=== PATIENT | female | born 1995 | race American Indian/Alaskan Native ===

== ENCOUNTER 2017-02-14 09:38 | Emergency (ER) | payer BC ==
[2017-02-14 09:46] VITALS: BP 128/83; PULSE 81; RESP 16; TEMP 98.7; O2SAT 100
[2017-02-14] MEDS ORDERED: Naproxen 550 mg Tab PO STA (10:01)
--- NOTE | 2017-02-14 10:03 | C.PDOC ---
History Of Present Illness 21 yr old female presents to the ER with complaints of sore throat, chills, nonproductive cough, nasal congestion and eye soreness for the past 2 days. Patient denies fever, chest pain, SOB, nausea, vomiting, abdominal pain, diarrhea, dysuria, headache, weakness or numbness. Time Seen by Provider: 02/14/17 09:39 Chief Complaint (Nursing): ENT Problem History Per: Patient History/Exam Limitations: no limitations Onset/Duration Of Symptoms: Days (2) Current Symptoms Are (Timing): Still Present Past Medical History Reviewed: Historical Data, Nursing Documentation, Vital Signs Vital Signs: Last Vital Signs Temp 98.7 F 02/14/17 09:45 Pulse 81 02/14/17 09:45 Resp 16 02/14/17 09:45 BP 128/83 02/14/17 09:45 Pulse Ox 100 02/14/17 10:04 - Medical History PMH: Seizures (seizures at age 4 no med per md went away) Family History: States: No Known Family Hx - Social History Hx Tobacco Use: Yes Hx Alcohol Use: Yes Hx Substance Use: No - Immunization History Hx Tetanus Toxoid Vaccination: No Hx Influenza Vaccination: No Hx Pneumococcal Vaccination: No Review Of Systems Except As Marked, All Systems Reviewed And Found Negative. Constitutional: Positive for: Chills. Negative for: Fever Eyes: Positive for: Other ((+) Eye soreness.) ENT: Positive for: Nose Congestion, Throat Pain (Sore throat) Cardiovascular: Negative for: Chest Pain Respiratory: Positive for: Cough (Nonproductive). Negative for: Shortness of Breath Gastrointestinal: Negative for: Nausea, Vomiting, Abdominal Pain, Diarrhea Genitourinary: Negative for: Dysuria Neurological: Negative for: Weakness, Numbness, Headache Physical Exam - Physical Exam Appears: Non-toxic, In Acute Distress (Mild uncomfortable), Other ((+) Speaking in full sentences.) Skin: Warm, Dry, No Rash Head: Atraumatic, Normacephalic Eye(s): bilateral: Normal Inspection, PERRL, EOMI Ear(s): Bilateral: Normal Nose: Discharge (Rhinorrhea) Oral Mucosa: Moist Tongue: Normal Appearing, No Swelling Lips: Normal Appearing, No Swelling Throat: Normal, No Erythema, No Exudate, No Drooling Neck: Normal, Normal ROM, Supple Chest: Symmetrical, No Tenderness Cardiovascular: Rhythm Regular, No Murmur Respiratory: Normal Breath Sounds, No Rales, No Rhonchi, No Stridor, No Wheezing Gastrointestinal/Abdominal: Normal Exam, Soft, No Tenderness, No Guarding, No Rebound Extremity: Normal ROM, No Swelling Neurological/Psych: Oriented x3, Normal Speech, Normal Motor ED Course And Treatment O2 Sat by Pulse Oximetry: 100 (RA) Pulse Ox Interpretation: Normal Progress Note: PLAN: Naproxen PO & Sudafed PO. Patient is given Rx for home. Disposition Counseled Patient/Family Regarding: Diagnosis, Need For Followup, Rx Given - Disposition Referrals: [facility] [Outside] Disposition: HOME/ ROUTINE Disposition Time: 10:15 Condition: STABLE Additional Instructions: FOLLOW UP WITH YOUR DOCTOR/CLINIC IN 1-2 DAYS DRINK PLENTY OF FLUIDS AND GET REST RETURN TO EMERGENCY ROOM IF SYMPTOMS WORSEN Prescriptions: Benzonatate [Tessalon Perles] 100 mg PO BID PRN #15 sgl PRN Reason: Cough Naproxen [Naprosyn Tab] 375 mg PO BID PRN #20 tab PRN Reason: pain Phenol/Glycerin [Chloraseptic Max [place]] 1 spray MM Q6 PRN #1 spray PRN Reason: THROAT PAIN Pseudoephedrine [Sudafed] 60 mg PO Q6 PRN #12 tab PRN Reason: Nasal Congestion Instructions: Upper Respiratory Infection (ED), Viral Syndrome (ED) Forms: [facility] [employer] (Mozambican), Work Excuse Print Language: TUNISIAN - POA Present On Arrival: None - Clinical Impression Clinical Impression: Viral upper respiratory infection - Scribe Statement The provider has reviewed the documentation as recorded by the Rosanneibrosita Avila Provider Attestation: All medical record entries made by the Rosanneibrosita were at my direction and personally dictated by me. I have reviewed the chart and agree that the record accurately reflects my personal performance of the history, physical exam, medical decision making, and the department course for this patient. I have also personally directed, reviewed, and agree with the discharge instructions and disposition.
[2017-02-14] MEDS ORDERED: Naproxen 550 mg Tab PO ONE (10:05)
== END 2017-02-14 10:14 | disposition home or self-care (01) ==
LOC: C.ER 09:38
DX: J06.9 Acute upper respiratory infection, unspecified (principal)

== ENCOUNTER 2017-06-19 12:14 | Emergency (ER) | payer BC ==
[2017-06-19 12:26] VITALS: BP 108/75; PULSE 88; RESP 18; TEMP 101.2; O2SAT 97
--- NOTE | 2017-06-19 12:42 | C.PDOC ---
Time Seen by Provider: 06/19/17 12:31 Chief Complaint (Nursing): Flu-like Symptoms History Per: Patient Onset/Duration Of Symptoms: Days (4) Current Symptoms Are (Timing): Still Present Associated Symptoms: Fever, Sore Throat, Cough, Myalgias, Nasal Congestion, Vomiting, Diarrhea Severity: Moderate Recent travel outside of the [place]: No Additional History Per: Prior Records Past Medical History Reviewed: Historical Data, Nursing Documentation, Vital Signs Vital Signs: Last Vital Signs Temp 101.2 F H 06/19/17 12:27 Pulse 88 06/19/17 12:24 Resp 18 06/19/17 12:24 BP 108/75 06/19/17 12:24 Pulse Ox 97 06/19/17 12:24 - Medical History PMH: No Chronic Diseases, Seizures (seizures at age 4 no med per md went away) Surgical History: No Surg Hx Family History: States: Unknown Family Hx - Social History Hx Tobacco Use: No Hx Alcohol Use: Yes Hx Substance Use: No - Immunization History Hx Tetanus Toxoid Vaccination: No Hx Influenza Vaccination: No Hx Pneumococcal Vaccination: No Review Of Systems Except As Marked, All Systems Reviewed And Found Negative. Constitutional: Positive for: Fever, Malaise ENT: Positive for: Nose Congestion, Throat Pain. Negative for: Ear Pain Cardiovascular: Negative for: Chest Pain Respiratory: Positive for: Cough. Negative for: Shortness of Breath, Hemoptysis Gastrointestinal: Negative for: Abdominal Pain Genitourinary: Negative for: Dysuria Musculoskeletal: Negative for: Neck Pain, Back Pain Skin: Negative for: Rash Neurological: Negative for: Weakness, Numbness, Seizures, Altered Mental Status Physical Exam - Physical Exam Appears: Non-toxic, No Acute Distress Skin: Normal Color, Warm, Dry, No Rash Head: Atraumatic, Normacephalic Eye(s): bilateral: Normal Inspection, PERRL, EOMI Oral Mucosa: Moist, No Drooling, No Trismus Throat: Erythema, No Exudate, No Drooling, No Mass Neck: Normal ROM, Supple Cardiovascular: Rhythm Regular Respiratory: Normal Breath Sounds, No Accessory Muscle Use Gastrointestinal/Abdominal: Soft, No Tenderness Back: No CVA Tenderness Extremity: Normal ROM Neurological/Psych: Oriented x3, Normal Speech, Normal Motor, Normal Sensation ED Course And Treatment O2 Sat by Pulse Oximetry: 97 Pulse Ox Interpretation: Normal Disposition Counseled Patient/Family Regarding: Diagnosis, Need For Followup, Rx Given - Disposition Disposition: HOME/ ROUTINE Disposition Time: 12:43 Condition: STABLE Additional Instructions: Drink plenty of fluids. Follow up with your doctor. Return to the ER if you develop shortness of breath, not tolerating fluids, worsening of symptoms or if you have any other concerns. Prescriptions: Guaifenesin/Dextromethorphan [Mucinex Dm ER 1,200-60 mg Tab] 1 tab PO BID PRN # 14 tab.er.12h PRN Reason: Cough And Congestion Naproxen [Naprosyn] 1 tab PO BID PRN #20 tab PRN Reason: Pain Instructions: Cold Symptoms (ED) Forms: [facility] (New Zealander) - Clinical Impression Clinical Impression: Influenza-like illness
== END 2017-06-19 12:51 | disposition home or self-care (01) ==
LOC: C.ER 12:14
DX: J11.1 Influenza due to unidentified influenza virus with other respiratory manifestations (principal)

== ENCOUNTER 2018-05-01 16:59 | Inpatient (IN) | payer BC ==
[2018-05-01] MEDS ORDERED: Sodium Chloride 0.9% 1,000 ML IV ONE (17:35)
--- NOTE | 2018-05-01 17:42 | C.PDOC ---
History Of Present Illness 22 y/o female presents to ED with c/o left lower back pain radiating anteriorly associated with nausea and urinary urgency for 2 days; symptoms worsened this morning. Patient denies similar prior episodes, fever/chills, diarrhea, dy suria/hematuria, vaginal discharge or any other complaints at this time. Time Seen by Provider: 05/01/18 17:20 Chief Complaint (Nursing): Abdominal Pain History Per: Patient History/Exam Limitations: no limitations Onset/Duration Of Symptoms: Days Current Symptoms Are (Timing): Still Present Severity: Moderate Quality Of Discomfort: "Pain" Associated Symptoms: Urinary Symptoms Past Medical History Reviewed: Historical Data, Nursing Documentation, Vital Signs Vital Signs: Last Vital Signs Temp 97.7 F 05/01/18 17:05 Pulse Resp BP Pulse Ox - Medical History PMH: Seizures (seizures at age 4 no med per md went away) Surgical History: No Surg Hx Family History: States: No Known Family Hx - Social History Hx Tobacco Use: No Hx Alcohol Use: Yes Hx Substance Use: No - Immunization History Hx Tetanus Toxoid Vaccination: No Hx Influenza Vaccination: No Hx Pneumococcal Vaccination: No Review Of Systems Constitutional: Negative for: Fever, Chills Cardiovascular: Negative for: Chest Pain, Palpitations Respiratory: Negative for: Shortness of Breath Gastrointestinal: Positive for: Nausea. Negative for: Vomiting, Abdominal Pain, Diarrhea Genitourinary: Positive for: Other (urinary urgency). Negative for: Dysuria, Hematuria, Vaginal Discharge Musculoskeletal: Positive for: Back Pain Skin: Negative for: Rash Physical Exam - Physical Exam Appears: Well, Non-toxic, Other (uncomfortable apearing, tearful ) Skin: Warm, Dry, No Rash Eye(s): bilateral: Normal Inspection Oral Mucosa: Moist Neck: Supple Cardiovascular: Rhythm Regular Respiratory: Normal Breath Sounds, No Rales, No Rhonchi, No Wheezing Gastrointestinal/Abdominal: Bowel Sounds, Soft, Tenderness (mild LLQ TTP), No Guarding, No Rebound Back: No CVA Tenderness Extremity: Normal ROM, No Pedal Edema Neurological/Psych: Oriented x3 ED Course And Treatment - Laboratory Results Result Diagrams: 05/01/18 17:39 05/01/18 17:39 O2 Sat by Pulse Oximetry: 100 (RA) Pulse Ox Interpretation: Normal - CT Scan/US ct abd/pelvis Other Rad Studies (CT/US): Read By Radiologist, Radiology Report Reviewed CT/US Interpretation: Accession No. : [id number]. Patient Name / ID : VALERIA NEWTON / [id number]. Exam Date : 05/01/2018 18:23:40 ( Approved ). Study Comment : Sex / Age : F / 22Y. Creator : Niranjan Alicea MD. Dictator : Niranjan Alicea MD. Monogram Maker : [employer] Consultant : Ramón Alicea MD. Approver2 : Report Date : 05/01/2018 18:58:29. My Comment : . This report is currently processing and HAS NOT BEEN OFFICIALLY SIGNED BY THE PHYSICIAN - ESTIMATED TIME OF APPROVAL IS 05/01/2018 19:03. Date of service: 05/01/2018. PROCEDURE: CT Abdomen and Pelvis without intravenous contrast. HISTORY: LLQ PAIN, HEMATURIA R/O KDINEY STONE. COMPARISON: None. TECHNIQUE: Axial and reformatted coronal and sagittal CT images of the abdomen and pelvis were obtained without IV or oral contrast administration.. Contrast dose: 0. Radiation dose: Total exam DLP = 1128.48 mGy-cm. This CT exam was performed using one or more of the following dose reduction techniques: Automated exposure control, adjustment of the mA and/or kV according to patient size, and/or use of iterative reconstruction technique. FINDINGS: LOWER THORAX: Unremarkable. LIVER: Unremarkable. No gross lesion or ductal dilatation. GALLBLADDER AND BILE DUCTS: Unremarkable. PANCREAS: Unremarkable. No gross lesion or ductal dilatation. SPLEEN: Unremarkable. ADRENALS: Unremarkable. No mass. KIDNEYS AND URETERS: There is mild enlargement of the left kidney. There is mild left hydronephrosis and hydroureter up to 7 x 5 millimeter calculus at or adjacent to the left UV junction in the terminal left ureter. No evidence of right hydronephrosis or renal calculi. VASCULATURE: Unremarkable. No aortic aneurysm . No aortic atherosclerotic calcification or mural plaque present. BOWEL: No obstruction. No gross mural thickening. APPENDIX: No evidence of appendicitis. PERITONEUM: Unremarkable. No free fluid. No free air. LYMPH NODES: Unremarkable. No enlarged lymph nodes. BLADDER: Unremarkable. REPRODUCTIVE: Unremarkable. BONES: No acute fracture. OTHER FINDINGS: None. IMPRESSION: Mild left hydronephrosis and hydroureter up to 7 x 5 millimeter calculus at or adjacent to the left UV junction. Progress Note: Blood work, UA, Upreg and CT abd/pelvis ordered and reviewed. Patient given IV NS bolus, IV toradol. Disposition - Disposition Forms: [employer] (Czech) - Scribe Statement The provider has reviewed the documentation as recorded by the Rosanneibrosita Garcia All medical record entries made by the Jacoby were at my direction and personally dictated by me. I have reviewed the chart and agree that the record accurately reflects my personal performance of the history, physical exam, medical decision making, and the department course for this patient. I have also personally directed, reviewed, and agree with the discharge instructions and disposition.
[2018-05-01] MEDS ORDERED: Sodium Chloride 0.9% 1,000 ML ONE (17:43)
[2018-05-01 17:46] LABS: BASO # 0.1 K/uL (0.0-0.2); BASO % 0.5 % (0.0-2.0); EOS % 0.4 % (0.0-4.0); HEMOGLOBIN 11.5 g/dL (11.0-16.0); LYMPH # 3.1 K/uL (1.0-4.3); LYMPH % 25.1 % (20.0-40.0); MEAN CORPUSCULAR HEMOGLOBIN 26.1 pg (27.0-31.0); MONO # 0.9 K/uL (0.0-0.8); MONO % 7.6 % (0.0-10.0); NEUT # 8.1 K/uL (1.8-7.0); NEUT % 66.4 % (50.0-75.0); RBC 4.4 Mil/uL (3.80-5.20); RED CELL DISTRIBUTION WIDTH 14.8 % (11.5-14.5); WHITE BLOOD COUNT 12.3 K/uL (4.8-10.8)
[2018-05-01 17:48] LABS: MEAN CELL VOLUME 79.2 fL (81.0-99.0)
[2018-05-01 17:52] LABS: SQUAMOUS EPITHIAL 2 /hpf (0-5); URINE BILIRUBIN NEGATIVE (NEGATIVE); URINE BLOOD 3+ (NEGATIVE); URINE COLOR Yellow (YELLOW); URINE GLUCOSE (UA) NORMAL (Normal); URINE LEUKOCYTE ESTERASE NEG Leu/uL (Negative); URINE PROTEIN NEGATIVE (NEGATIVE)
[2018-05-01 17:55] LABS: HCG,QUALITATIVE URINE NEGATIVE (NEGATIVE); URINE CLARITY SL HAZY (Clear)
[2018-05-01 18:09] LABS: ALB/GLOB RATIO 1.1 (1.0-2.1); ALBUMIN 4.3 g/dL (3.5-5.0); ALT/SGPT 17 U/L (9-52); AST/SGOT 32 U/L (14-36); BLOOD UREA NITROGEN 11 mg/dL (7-17); CALCIUM 9.4 mg/dl (8.6-10.4); GFR NON-AFRICAN AMERICAN > 60; LIPASE 56 U/L (23-300)
--- NOTE | 2018-05-01 19:02 | CT ---
Date of service: 05/01/2018 PROCEDURE: CT Abdomen and Pelvis without intravenous contrast HISTORY: LLQ PAIN, HEMATURIA R/O KDINEY STONE COMPARISON: None. TECHNIQUE: Axial and reformatted coronal and sagittal CT images of the abdomen and pelvis were obtained without IV or oral contrast administration.. Contrast dose: 0 Radiation dose: Total exam DLP = 1128.48 mGy-cm. This CT exam was performed using one or more of the following dose reduction techniques: Automated exposure control, adjustment of the mA and/or kV according to patient size, and/or use of iterative reconstruction technique. FINDINGS: LOWER THORAX: Unremarkable. LIVER: Unremarkable. No gross lesion or ductal dilatation. GALLBLADDER AND BILE DUCTS: Unremarkable. PANCREAS: Unremarkable. No gross lesion or ductal dilatation. SPLEEN: Unremarkable. ADRENALS: Unremarkable. No mass. KIDNEYS AND URETERS: There is mild enlargement of the left kidney. There is mild left hydronephrosis and hydroureter up to 7 x 5 millimeter calculus at or adjacent to the left UV junction in the terminal left ureter. No evidence of right hydronephrosis or renal calculi. VASCULATURE: Unremarkable. No aortic aneurysm. No aortic atherosclerotic calcification or mural plaque present. BOWEL: No obstruction. No gross mural thickening. APPENDIX: No evidence of appendicitis. PERITONEUM: Unremarkable. No free fluid. No free air. LYMPH NODES: Unremarkable. No enlarged lymph nodes. BLADDER: Unremarkable. REPRODUCTIVE: Unremarkable. BONES: No acute fracture. OTHER FINDINGS: None. IMPRESSION: Mild left hydronephrosis and hydroureter up to 7 x 5 millimeter calculus at or adjacent to the left UV junction.
[2018-05-01] MEDS ORDERED: cefTRIAXone 1 gm 1 GM/100 ML BAG IVPB ONE (19:36)
[2018-05-01] MEDS ORDERED: Morphine 4 MG/ML VIAL ONE (19:36)
--- NOTE | 2018-05-02 15:50 | CP.PCM.PN ---
Subjective - Date & Time of Evaluation Date of Evaluation: 05/02/18 Time of Evaluation: 07:40 - Subjective Subjective: Medicine progress note ( Dr. Huggins's service) Patient was seen and examined at bedside in no acute distress. Patient denies any discomfort at this time due to recent pain medication dose given at 4:30am. Patient denies any symptoms of fever, chills, nausea, vomiting, chest pain, palpitation, shortness of breath, dizziness but admits to mild left flank pain. HPI: Patient is a 22 year old female with no known past medical history, who presents to the ED with complaints of 10/10 squeezing left lower back pain that radiated anteriorly to the lower abdomen that has been going on for 4 days. Patient states that she thought nothing of symptoms as she started her menstrual cycle 3 days ago and believed her discomfort was due to menstrual cramps. Patient states that after her menstrual cycle had ended, she continued to have lower left flank pain. Patient denies any symptoms of fever, chills, nausea, vomiting, diarrhea, palpitations, shortness of breath but could not determine if she had hematuria due to concurrent menstrual cycle PMD: None PMHx: Denies PSHx: Denies FHx: Mom and sister: Hx of Gall stones Medications: Denies Allergies: NKDA Social Hx: Lives alone. 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 Denies current or former histo ry of tobacco, illicit drug use. Admits to occasional ETOH use Objective - Vital Signs/Intake and Output Vital Signs (last 24 hours): Temp Pulse Resp BP Pulse Ox 98.5 F 78 20 105/60 98 05/02/18 08:01 05/02/18 08:01 05/02/18 08:01 05/02/18 08:01 05/02/18 08:01 - Medications Medications: Current Medications Influenza Virus Vaccine (Fluzone Quad [id number]) 60 mcg IM .ONCE ONE Stop: 05/03/18 10:01 Morphine Sulfate (Morphine) 4 mg IVP Q4 PRN PRN Reason: pain Last Admin: 05/02/18 04:37 Dose: 4 mg Pneumococcal Polyvalent Vaccine (Pneumovax 23 Vaccine) 0.5 ml IM .ONCE ONE Stop: 05/03/18 10:01 Tamsulosin HCl (Flomax) 0.4 mg PO DAILY AMADOU Last Admin: 05/02/18 11:12 Dose: Not Given - Labs Labs: 05/01/18 17:39 05/01/18 17:39 - Constitutional Appears: Well, No Acute Distress - Head Exam Head Exam: ATRAUMATIC, NORMAL INSPECTION - Eye Exam Eye Exam: EOMI, Normal appearance - ENT Exam ENT Exam: Mucous Membranes Moist - Respiratory Exam Respiratory Exam: Clear to Ausculation Bilateral, NORMAL BREATHING PATTERN. absent: Chest Wall Tenderness, Prolonged Expiratory Phase, Rhonchi, Wheezes, Respiratory Distress - Cardiovascular Exam Cardiovascular Exam: REGULAR RHYTHM, +S1, +S2 - GI/Abdominal Exam GI & Abdominal Exam: Soft, Normal Bowel Sounds. absent: Guarding, Rigid, T enderness - Extremities Exam Extremities Exam: Normal Inspection. absent: Calf Tenderness, Pedal Edema - Back Exam Back Exam: CVA tenderness (L). absent: CVA tenderness (R), NORMAL INSPECTION - Neurological Exam Neurological Exam: Alert, Awake, Oriented x3 - Psychiatric Exam Psychiatric exam: Normal Affect - Skin Skin Exam: Normal Color Assessment and Plan (1) Left flank pain Assessment & Plan: Labs/Vital signs: UA: RBC (492), Urobilinogen (2.0) Afebrile Imaging: Abdomen/Pelvis CT: Mild left hydronephrosis and hydroureter up to 7 x 5 millimeter calculus at or adjacent to the left UV junction. Consultation: Dr. Monte---> Help appreciated - NPO after breakfast Medications: * Tamulosin 0.4mg PO daily * Morphine 4mg IV Q4H PRN Disposition: Plans for OR with Dr. Monte All plans and management discussed with Dr. Huggins Status: Acute
[2018-05-02] MEDS ORDERED: Morphine 4 MG/ML VIAL IVP PRN (17:00)
[2018-05-02] MEDS ORDERED: Propofol 10 mg/ml Inj (20 ML) ONE ×4 (17:44→19:09)
[2018-05-02] MEDS ORDERED: Midazolam 2 MG/2 ML VIAL ONE (17:44)
[2018-05-02] MEDS ORDERED: Iohexol 240 (50 ml) ONE (18:21)
[2018-05-02] MEDS ORDERED: Ciprofloxacin 400mg/200ml D5W 400 MG/200 ML BAG IVPB ONE (18:21)
[2018-05-02] MEDS ORDERED: HYDROmorphone 0.5 mg/0.5 ml ISec IVP PRN (19:22)
[2018-05-02 19:52] VITALS: O2SAT 100
[2018-05-02 20:22] VITALS: BP 104/70; PULSE 70; RESP 20; TEMP 97.1
[2018-05-02] MEDS ORDERED: Influenza Vaccine 60 MCG/0.5 ML SYR (3 yr & up) IM ONE (22:03)
[2018-05-02] MEDS ORDERED: Pneumococcal 23-Valent Vaccine IM ONE (22:04)
[2018-05-03] MEDS ORDERED: Pneumococcal 23-Valent Vaccine IM ONE (10:00)
[2018-05-03] MEDS ORDERED: Influenza Vaccine 60 MCG/0.5 ML SYR (3 yr & up) IM ONE (10:00)
--- NOTE | 2018-05-03 11:40 | RAD ---
Date of service: 05/02/2018 PROCEDURE: Intraoperative Fluoroscopy. HISTORY: LEFT URETERAL STONE/LT HYDRONEPHROSIS FINDINGS: Fluoroscopic assistance was provided for left ureteral stent insertion. Please refer to the operative report from CHARITY Villagomez.
--- NOTE | 2018-05-05 08:03 | OP ---
DATE: 05/02/2018 A 22-year-old female, brought to the OR for cystoscopy and insertion of the stent for obstructing left ureteral calculus. The patient was prepped and draped in the usual manner with general anesthesia given. A #21 cystourethroscope was introduced into the bladder. A 0.035 wire was then inserted into the left orifice into the kidney. A double-J stent left over the wire and the wire was removed. Good positioning of the stent. The patient tolerated the procedure well. Left the room in good condition. Delio Monte MD
== END 2018-05-02 22:43 | disposition home or self-care (01) | DRG 661 ==
LOC: C.ER 16:59 → C.9E 19:06 → C.3T 20:40
PROVIDERS: ADMIT Internal Medicine Pulmonary Disease; ATTEND Internal Medicine Pulmonary Disease
PROC: 0T778DZ Dilation of Left Ureter with Intraluminal Device, Via Natural or Artificial Opening Endoscopic (ICD-10-PCS; principal; 2018-05-02 15:00)
DX: N13.2 Hydronephrosis with renal and ureteral calculous obstruction (principal)

== ENCOUNTER 2018-06-05 12:38 | Emergency (ER) | payer BC ==
[2018-06-05 13:27] VITALS: O2SAT 99
[2018-06-05 14:41] LABS: HCG,QUALITATIVE URINE NEGATIVE (NEGATIVE)
[2018-06-05 14:48] LABS: SQUAMOUS EPITHIAL 1 /hpf (0-5); URINE BILIRUBIN NEGATIVE (NEGATIVE); URINE BLOOD 3+ (NEGATIVE); URINE CLARITY Hazy (Clear); URINE COLOR Yellow (YELLOW); URINE GLUCOSE (UA) NORMAL (Normal); URINE LEUKOCYTE ESTERASE 3+ Leu/uL (Negative); URINE PROTEIN 1+ mg/dL (NEGATIVE); URINE UROBILINOGEN NORMAL mg/dL (0.2-1.0)
[2018-06-05 15:25] VITALS: BP 120/72; PULSE 70; RESP 18; TEMP 98
--- NOTE | 2018-06-05 17:26 | C.PDOC ---
History Of Present Illness 22 y/o female presents to the ED complaining of discomfort to the left lower quadrant. Patient reports she is s/p ureteral stent placement on 05/02 for a 7x 5 renal stone at the left UVJ by Dr. Vilchis. Patient believes current pain is related to the stent. States she has not been able to follow up in office. Otherwise she denies any fever, chills, vomiting, diarrhea, dysuria, or hematuria. Time Seen by Provider: 06/05/18 13:22 Chief Complaint (Nursing): Female Genitourinary History Per: Patient History/Exam Limitations: no limitations Onset/Duration Of Symptoms: Days Current Symptoms Are (Timing): Still Present Past Medical History Reviewed: Historical Data, Nursing Documentation, Vital Signs Vital Signs: Last Vital Signs Temp 98 F 06/05/18 15:00 Pulse 70 06/05/18 15:00 Resp 18 06/05/18 15:00 BP 120/72 06/05/18 15:00 Pulse Ox 99 06/05/18 15:00 - Medical History PMH: Seizures (seizures at age 4 no med per md went away) Denies: Chronic Kidney Disease Family History: States: Unknown Family Hx - Social History Hx Tobacco Use: No Hx Alcohol Use: Yes Hx Substance Use: No - Immunization History Hx Tetanus Toxoid Vaccination: No Hx Influenza Vaccination: No Hx Pneumococcal Vaccination: No Review Of Systems Except As Marked, All Systems Reviewed And Found Negative. Constitutional: Negative for: Fever, Chills Cardiovascular: Negative for: Chest Pain Gastrointestinal: Positive for: Nausea, Abdominal Pain. Negative for: Vomiting, Diarrhea, Constipation, Hematochezia Genitourinary: Negative for: Frequency, Hematuria, Vaginal Discharge, Vaginal Bleeding Neurological: Negative for: Weakness, Headache Physical Exam - Physical Exam Appears: Non-toxic, No Acute Distress, Other (Obese black female) Skin: Normal Color, Warm, Dry Head: Atraumatic, Normacephalic Eye(s): bilateral: Normal Inspection, PERRL, EOMI Oral Mucosa: Moist Neck: Normal ROM Chest: Symmetrical Cardiovascular: Rhythm Regular, No Murmur Respiratory: Normal Breath Sounds, No Rales, No Rhonchi, No Stridor Gastrointestinal/Abdominal: Soft, No Tenderness, No Distention Back: Normal Inspection Extremity: Bilateral: Atraumatic, Normal Color And Temperature Neurological/Psych: Oriented x3 ED Course And Treatment O2 Sat by Pulse Oximetry: 99 (RA) Pulse Ox Interpretation: Normal Medical Decision Making Medical Decision Making: Plan: * Urinalysis * Urine preg Discussed case with Dr. Monte, patient is to follow up in his office immediately upon discharge. Given appointment information. Disposition Doctor Will See Patient In The: Office Counseled Patient/Family Regarding: Studies Performed, Diagnosis - Disposition Referrals: Delio Monte MD [Staff Provider] - Disposition: HOME/ ROUTINE Disposition Time: 15:00 Condition: GOOD Additional Instructions: follow-up with Dr. Fournier NOW in his office in [place] Instructions: Ureteral Stent Forms: [employer] (Belarusian) - Clinical Impression Clinical Impression: S/P ureteral stent placement - Scribe Statement The provider has reviewed the documentation as recorded by the Rosanneibrosita Burnett Provider Attestation: All medical record entries made by the Scribe were at my direction and personally dictated by me. I have reviewed the chart and agree that the record accurately reflects my personal performance of the history, physical exam, medical decision making, and the department course for this patient. I have also personally directed, reviewed, and agree with the discharge instructions and disposition.
== END 2018-06-05 15:00 | disposition home or self-care (01) ==
LOC: C.ER 12:38
DX: Z98.890 Other specified postprocedural states (principal)